=== PATIENT | male | born 1990 | race Two or more races ===

== ENCOUNTER 2025-05-07 17:46 | Emergency (ER) | payer SELFPAY ==
[2025-05-07 18:12] VITALS: BP 128/79; PULSE 77; RESP 18; TEMP 36.7; O2SAT 97; BMI 27.4
--- NOTE | 2025-05-07 18:14 | PD.EDMALE ---
ED Male Genitalurinary RME/HPI General Chief complaint: Urogenital-Male Stated complaint: Right side flank pain today Time Seen by Provider: 05/07/25 18:08 Arrival date/time: 05/07/25 17:46 RME / HPI RME / HPI Narrative: DR. SCOTT MAIN ED EVALUATION: 34 y/o male with Hx of Diverticulitis presents to ED c/o ongoing intermittent right flank pain with a sharp component for 6 months. Also noted urinary frequency and hematuria that has been worsened over several weeks. No modifying factors. Denies PSHx. Denies smoking, alcohol and tobacco use. Denies N/V/F/D. No other concerns or complaints expressed at this time. Related Data Previous Rx's ?Medication ?Instructions ?Recorded amoxicillin 500 mg-potassium 1 tab PO TID 10 days #30 tabs 05/07/25 clavulanate 125 mg tablet (Augmentin) hydrocodone 5 mg-acetaminophen 325 1 tab PO TID 5 days #15 tabs 05/07/25 mg tablet prochlorperazine maleate 5 mg 5 mg PO TID PRN nausea and 05/07/25 tablet (Compazine) vomiting #14 tabs Allergies Allergy/AdvReac Type Severity Reaction Status Date / Time No Known Drug Allergies Allergy Verified 05/07/25 17:52 Review of Systems Review of Systems Systems Reviewed: All systems reviewed, normal except as documented Past Medical History Past Medical History GASTROINTESTINAL: Positive Diverticulitis Social History SMOKING STATUS: Never smoker ED Exam Narrative Physical exam: GEN. APPEARANCE: The patient is alert awake oriented X-3 in no distress, lying down comfortably, does not look ill/toxic.? Patient has good eye contact.? Patient is cooperative. Reports right flank pain. VITALS:? All vitals were reviewed and the pulse ox is 97% on room air which is normal according to my interpretation. HEENT: Normocephalic, atraumatic.? Pupils are equal and reactive.? Oral mucosa is moist. Patent Nares NECK: Supple, nontender, no thyromegaly, no meningismus, no JVD, no step offs CHEST: Symmetrical, atraumatic, and with equal expansion , Nontender on palpation no deformity and no crepitus. CARDIOVASCULAR: Heart regular rhythm no murmur or gallop rub or extra beats. LUNGS: Clear to auscultation bilaterally with symmetrical chest rise.? No laboring tachypnea or wheezing.? No intercostal subcostal retraction.? No rales and no rhonchi. ABDOMEN: Soft, flat, remarkable tenderness to palpation of suprapubic area regularly extending to right flank and equivocal peritoneal findings, no guarding or rebound tenderness.? There are no abnormal masses palpated.? Active and normal bowel sounds. EXTREMITIES: Nontender.? No edema.? No cyanosis.? Patient is able to move all 4 extremities well, with full ROM and good CSM. SKIN: Warm and dry, no jaundice or rashes noted. Course Quality Measures none Orders Category Date Time Status CT abdomen pelvis wo con Stat Exams 05/07/25 18:20 Completed CBC Stat Lab 05/07/25 18:35 Completed Comprehensive Metabolic Panel Stat Lab 05/07/25 18:35 Completed Drug Screen,Urine Stat Lab 05/07/25 18:54 Completed Lipase Stat Lab 05/07/25 18:35 Completed Magnesium Stat Lab 05/07/25 18:35 Completed Partial Thromboplastin Time Stat Lab 05/07/25 18:35 Completed Prothrombin Time with INR Stat Lab 05/07/25 18:35 Completed Urinalysis Stat Lab 05/07/25 18:54 Completed Amoxicillin/Pot Clav 875 [Augmentin 875] Med 05/07/25 20:45 Once 1 tab PO X1 ONE HYDROcodone*/APAP 5/325(CTC) [Morton 5/325 (CTC)] Med 05/07/25 20:45 Once 1 tab PO X1 ONE Metoclopramide Inj [Reglan Inj] Med 05/07/25 18:23 Discontinued 5 mg IVP X1 ONE Morphine Inj Med 05/07/25 18:22 Discontinued 4 mg IVP X1 ONE Sodium Chloride 0.9% 1000 ml [Ns] 1,000 ml Med 05/07/25 18:25 Discontinued IV 999 mls/hr Vital Signs Vital signs: Vital Signs Temperature 98.0 F 05/07/25 18:12 Pulse Rate 77 05/07/25 18:12 Respiratory Rate 18 05/07/25 18:12 Blood Pressure 128/79 05/07/25 18:12 Pulse Oximetry (%) 97 05/07/25 18:12 Oxygen Delivery Method Room Air 05/07/25 18:12 Urogenital - Male MDM Narrative MDM Narrative:: Scribe Attestation: I, Niurka Keane, am scribing for and in the presence of Dr. Scott. Provider Notation: Although this document has been carefully reviewed, there may still be some phonetic and other typographical errors.? These errors are purely grammatical due to imperfections in the software program and should not be construed in any way to? compromise the substance of the patient's medical care during this visit. 34 y/o male with Hx of Diverticulitis presents to ED c/o ongoing intermittent right flank pain with a sharp component for 6 months. Also noted urinary frequency and hematuria that has been worsened over several weeks. Please see PE findings. Laboratory markers demonstraing normal WBC, no anemia, or thrombocytopenia. Chemistry is unremarkable. UA demonstrates 5 RBC/hpf. Toxicology screening was negative. Patient was treated with PO Morton. Stable with no sign of sepsis. Recurrent episodes of sigmoid diverticulitis demonstrated by CT. No signs of perforation or phleghmon. Patient is considered stable for discharge. Patient will be placed on Augmenti, Morton, and Compazine. Advised to maintain a liqud diet for the4 next 48 hours. Referred to local GI specialist. Patient data External records reviewed:: [facility] previous records (No prior ED records available for review.) Clinical information provided by:: patient Social determinants that could affect healthcare access:: none Patient has the following chronic illnesses:: Diverticulitis How is presenting disease/condition affected by chronic disease/condition?: exacerbated by Evaluation data The following diagnostics were reviewed and interpreted by me:: lab results and radiology exam(s) Lab and/or radiology exams considered but not ordered:: None Interpretation Summary: RADIOLOGY Abdomen/Pelvis CT: Patient: JAY JAY CHENG [facility]. Record#: [id number] Birthdate: 1990 Age/Sex: 34 / M Location: [facility] Attending Dr: Ordering Physician: Khoa Mccray DO Date of Service: 05/07/25 Procedure(s): CT abdomen pelvis wo con Accession Number(s): [id number] cc: Khoa Mccray DO; Dave Andino MD; NO PRIMARY/FAMILY,PHYSICIAN~ Examination: CT abdomen and pelvis without contrast. Coronal 3-D reconstructions. Sagittal 2-D reconstructions. Date and time of exam:May 07, 2025, 1928 hours INDICATIONS: Right flank pain beginning 2 days ago, history diverticulitis CTDI: vol (mGy): 6.69 DLP: (mGycm): 431 Technique: Axial images of the abdomen have been obtained, 3 mm slice thickness Intravenous contrast material has not been administered. Low dose protocols were performed. One or more of the following dose reduction techniques were used; automated exposure control, adjustment of the mA and/or KV according to patient size, use of iterative reconstruction technique. Findings: No focal liver or splenic lesions No gallstones No pancreatic or adrenal mass 2 mm 1 mm, adjacent 1 mm right renal calculi, no hydronephrosis or ureteral calculi Normal appendix No bowel obstruction Acute diverticulitis in the sigmoid colon axial image 178, no peridiverticular abscess Contractured urinary bladder No prostatomegaly Intact osseous structures Impression : Nonobstructing right renal calculi Acute sigmoid diverticulitis, no peridiverticular abscess Dictated By: Dave Andino MD Signed By: <Electronically signed by Dave Andino MD in OV> 05/07/251945 Medications / Prescriptions Medications or Prescriptions considered but not ordered:: None Medication administrations:: Medication Administration History Hydrocodone Bitart/Acetaminophen (Hydrocodone/Apap 5/325 Tablet ([facility] Only)) 1 tab PO X1 ONE Stop: 05/07/25 20:46 Amoxicillin/Clavulanate Potassium (Amoxicillin/Pot Clav 875 Tablet) 1 tab PO X1 ONE Stop: 05/07/25 20:46 Discontinued Medications Sodium Chloride (Ns) 1,000 mls @ 999 mls/hr IV .Q1H1M ONE Stop: 05/07/25 19:25 Last Admin: 05/07/25 20:37 Dose: Not Given Documented By: ROLLY Non-Admin Reason: Cancelled by Provider Metoclopramide HCl (Metoclopramide Inj 5 Mg/Ml Vial 2 Ml) 5 mg IVP X1 ONE; Protocol Stop: 05/07/25 18:24 Last Admin: 05/07/25 20:37 Dose: Not Given Documented By: ROLLY Non-Admin Reason: Cancelled by Provider Morphine Sulfate (Morphine Sulf Inj 10 Mg/Ml Vial) 4 mg IVP X1 ONE Stop: 05/07/25 18:23 Last Admin: 05/07/25 20:37 Dose: Not Given Documented By: ROLLY Non-Admin Reason: Cancelled by Provider See above if any Consultations Consultation(s) initiated? (list below): No Diagnosis Urogenital Male Differential Diagnosis: urinary tract infection, urethritis, epididymitis, prostatitis, acute retention of urine and inguinal hernia Most likely diagnosis given after review of the tests above:: Acute sigmoid diverticulitis. Admission Indicated Admission indicated?: not indicated Explain why admission is indicated or not indicated:: Patient does not meet admission criteria. Admission Request Was there a request for admission?: No Disposition Plan Disposition Plan: Discharge Discharge Attestation Discharge Attestation: The patient and all family members were given an opportunity to ask questions and understood the discharge instructions. Discharge instructions specifically effects, indications for sooner follow up or return to the emergency department, and the expected course of current diagnosis. Patient condition: Stable Discharge Plan Plan Patient Disposition: HOME (Self Care) Patient condition on transfer: Stable Prescriptions/Referrals Prescriptions/Med Rec: New amoxicillin-pot clavulanate [Augmentin] 500-125 mg tablet 1 tab PO TID 10 Days Qty: 30 0RF prochlorperazine maleate [Compazine] 5 mg tablet 5 mg PO TID MDD 3 tab PRN (Reason: nausea and vomiting) Qty: 14 0RF hydrocodone-acetaminophen 5-325 mg tablet 1 tab PO TID MDD 3 tab 5 Days Qty: 15 0RF Referrals: David Leary MD [Physician] - In 1 week (Patient with recurrent episode of sigmoid diverticulitis. Please evaluate) No Primary/Family,Physician [Primary Care Provider] - In 1 week Problem List Clinical Impression: Sigmoid diverticulitis Patient/Caregiver Discharge Instructions Education Materials: ED Diverticulitis Additional Instructions: Advised clear liquid diet for the next 48 hours. Take medication as directed. Follow-up with local GI specialist in 5-7 days. Print Language: Nepali Stand Alone Forms: Mellissa Award Info., Patient Portal Info Letter
--- NOTE | 2025-05-07 18:20 | XR_ITS ---
Examination: CT abdomen and pelvis without contrast. Coronal 3-D reconstructions. Sagittal 2-D reconstructions. Date and time of exam:May 07, 2025, 1928 hours INDICATIONS: Right flank pain beginning 2 days ago, history diverticulitis CTDI: vol (mGy): 6.69 DLP: (mGycm): 431 Technique: Axial images of the abdomen have been obtained, 3 mm slice thickness Intravenous contrast material has not been administered. Low dose protocols were performed. One or more of the following dose reduction techniques were used; automated exposure control, adjustment of the mA and/or KV according to patient size, use of iterative reconstruction technique. Findings: No focal liver or splenic lesions No gallstones No pancreatic or adrenal mass 2 mm 1 mm, adjacent 1 mm right renal calculi, no hydronephrosis or ureteral calculi Normal appendix No bowel obstruction Acute diverticulitis in the sigmoid colon axial image 178, no peridiverticular abscess Contractured urinary bladder No prostatomegaly Intact osseous structures Impression : Nonobstructing right renal calculi Acute sigmoid diverticulitis, no peridiverticular abscess
[2025-05-07 18:48] LABS: Basophils # (Auto) 0.0 Thou/mm3 (0.0-0.2); Basophils % (Auto) 1 % (0-2.5); Eosinophils # (Auto) 0.2 Thou/mm3 (0.0-0.5); Eosinophils % (Auto) 5 % (0-10); Hematocrit 43.8 % (41.0-53.0); Hemoglobin 15.4 g/dL (13.5-16.0); Immature Granulocytes Auto 0.00 Thou/mm3 (0.00-0.00); Lymphocytes # (Auto) 2.2 Thou/mm3 (1.0-4.8); Lymphocytes % (Auto) 46 % (10-50); Mean Corpuscular HGB Conc 35.2 g/dl (31.0-37.0); Mean Corpuscular Hemoglobin 30.0 pg (25.0-35.0); Mean Corpuscular Volume 85 fL (80-100); Monocytes # (Auto) 0.4 Thou/mm3 (0.0-0.8); Monocytes % (Auto) 8 % (0-12); Neutrophils # (Auto) 1.9 Thou/mm3 (1.8-7.7); Neutrophils % (Auto) 40 % (37-80); Nucleated Red Blood Cell # 0.00 Thou/mm3 (0.00-0.00); Nucleated Red Blood Cell % 0 /100 WBC (0); Platelet Count 232 Thou/mm3 (140-440); RDW Standard Deviation 36.7 fL (35.1-43.9); Red Blood Count 5.14 Miln/mm3 (4.50-5.90); White Blood Count 4.8 Thou/mm3 (3.8-10.6)
[2025-05-07 19:01] LABS: INR 1.0 (0.9-1.3); Partial Thromboplastin Time 27.5 Seconds (22.0-36.0); Prothrombin Time 11.0 Seconds (9.0-12.2)
[2025-05-07 19:03] LABS: Collection Type, Urine Clean Catch
[2025-05-07 19:05] LABS: Alanine Aminotransferase 27 U/L (10-49); Albumin, Serum 4.6 gm/dL (3.5-5.0); Albumin/Globulin Ratio 2.0 (1.2-2.2); Alkaline Phosphatase 67 U/L (46-116); Anion Gap 8 (7-16); Aspartate Amino Transferase 23 U/L (0-34); BUN/Creatinine Ratio 16 Ratio (12-20); Bilirubin,Total 0.6 mg/dL (0.3-1.2); Blood Urea Nitrogen 14 mg/dL (9-23); Calcium 9.7 mg/dL (8.3-10.6); Calcium (Corrected) 9.7 mg/dL (8.5-10.1); Carbon Dioxide 28.3 mMol/L (20.0-31.0); Chloride 105 mMol/L (98-107); Creatinine (Component) 0.9 mg/dL (0.6-1.3); Estimated Creatinine Clearance 106.6 mL/min (>60); Globulin 2.3 gm/dL (2.3-3.5); Glucose 95 mg/dL (74-106); Lipase 30 U/L (12-53); Magnesium 1.9 mg/dL (1.6-2.6); Osmolality,Calculated 281 (275-295); Potassium 4.2 mMol/L (3.4-5.1); Sodium 141 mMol/L (136-145); Total Protein 6.9 gm/dL (5.7-8.2); eGFR > 60 See Note
[2025-05-07 19:10] LABS: Bilirubin,Urine Negative (Negative); Blood,Urine Negative (Negative); Clarity,Urine Clear (Clear/Hazy); Color,Urine Lt-Yellow (Lt Yel-Yel); Glucose, Urine Negative (Negative); Ketones,Urine Negative (Negative); Leukocyte Esterase,Urine Negative (Negative); Nitrite,Urine Negative (Negative); PH,Urine 6.0 (5.0-7.0); Protein,Urine Negative (Neg - Trace); RBC,Urine 5 /hpf (0-3); Specific Gravity,Urine 1.026 (1.001-1.035); Squamous Epithelial Cell,Urine < 1 /hpf (0-5); Urobilinogen,Urine Negative mg/dL (0.0-1.0); WBC,Urine 1 /hpf (0-5)
[2025-05-07 19:25] LABS: Amphetamine/Methamp Scrn,U Negative (Negative); Barbiturate Screen,Urine Negative (Negative); Benzodiazepines Screen,Urine Negative (Negative); Benzoylecgonine Screen, Ur Negative (Negative); Fentanyl Screen,Urine Negative (Negative); Opiate Screen,Urine Negative (Negative); THC Screen,Urine Negative (Negative)
[2025-05-07] MEDS: AMOXICILLIN/POT CLAV 875 TABLET 1 TAB PO (20:50)
[2025-05-07] MEDS: HYDROcodone/APAP 5/325 TABLET 1 TAB PO (20:50)
[2025-05-07 20:54] VITALS: BP 117/78; PULSE 60; RESP 18; TEMP 36.8; O2SAT 97
== END 2025-05-07 21:02 | disposition home or self-care (01) ==
PROVIDERS: Emergency Provider Emergency Medicine
DX: K57.32 Diverticulitis of large intestine without perforation or abscess without bleeding (principal)
CPT/HCPCS: 36415; 74176; 80053; 80307; 81001; 83690; 83735; 85025; 85610; 85730; 99283; A9270